=== PATIENT | male | born 1965 | race Caucasian/White ===

== ENCOUNTER → 2016-05-23 | Outpatient (CLI) | payer BC ==
--- NOTE | 2016-05-23 10:34 | REP ---
Cervical spine series: AP views. History: Posterior neck pain for months. Comparison study is reviewed from January 09, 2006. Findings: There is straightening of the normal cervical lordosis with limitation of flexion/extension range of motion on lateral flexion extension views. This is more pronounced than on the 2006 prior study. Vertebral body heights are preserved. There is mild disc space narrowing at C5-6 and C6-7 with early discogenic spurring at these two levels. Prevertebral soft tissues are unremarkable. Oblique radiographs demonstrate intact neural foramina bilaterally at each cervical level and normally aligned facets. AP view shows minimal facet hypertrophy bilaterally. Open-mouth odontoid view is unremarkable. Impression: Mild degenerative spondylosis changes, more pronounced than on the 2006 prior exam. Limitation of flexion/extension range of motion. No bony neural foraminal encroachment seen. Signed by Ronny Figueroa MD 05/23/2016 10:45 A
--- NOTE | 2016-05-23 13:33 | REP ---
LEFT SHOULDER: Three views of the left shoulder are performed. There is no acute fracture or dislocation. Small spurs are seen of the bony glenoid inferiorly. IMPRESSION: Mild degenerative changes with no fracture or dislocation. Signed by Brian Hendrickson MD 05/23/2016 05:01 P
== END ==
LOC: M WUC 08:31
PROVIDERS: ATTEND Physician Assistant
DX: M25.512 Pain in left shoulder (principal)

== ENCOUNTER → 2016-10-23 | Outpatient (CLI) | payer BC ==
[2016-10-23 09:43] LABS: ADD MANUAL DIFFER YES; MEAN CORPUSCULAR HEMOGLOBIN 29.7 pg (27.0-33.0); MEAN CORPUSCULAR HGB CONC 33.2 g/dl (32.0-36.5); MEAN CORPUSCULAR VOLUME 89.5 fl (80.0-96.0); PLATELET COUNT, AUTOMATED 177 k/mm3 (150-450); RED CELL DISTRIBUTION WIDTH 12.1 % (11.5-14.5); WHITE BLOOD COUNT 2.7 K/mm3 (4.0-10.0)
[2016-10-23 10:22] LABS: ALBUMIN/GLOBULIN RATIO 1.48 (1.00-1.93); ALKALINE PHOSPHATASE 54 U/L (45-117); ALT/SGPT 29 U/L (12-78); ANION GAP 7 MEQ/L (8-16); AST/SGOT 18 U/L (15-37); BILIRUBIN,TOTAL 0.4 MG/DL (0.2-1.0); BLOOD UREA NITROGEN 19 MG/DL (7-18); CALCIUM LEVEL 8.6 MG/DL (8.5-10.1); CARBON DIOXIDE LEVEL 29 MEQ/L (21-32); CHLORIDE LEVEL 108 MEQ/L (98-107); CHOLESTEROL LEVEL 158 MG/DL (<200); CREATININE FOR GFR 1.14 MG/DL (0.70-1.30); GLOMERULAR FILTRATION RATE > 60.0 (>56); GLUCOSE, FASTING 100 MG/DL (70-105); POTASSIUM SERUM 4.7 MEQ/L (3.5-5.1); SODIUM LEVEL 144 MEQ/L (136-145); TOTAL PROTEIN 6.7 GM/DL (6.4-8.2); TRIGLYCERIDES LEVEL 52 MG/DL (<150)
[2016-10-23 10:24] LABS: BASOPHILS 1 % (0-4); EOSINOPHILS 1 % (0-5)
== END ==
LOC: M WUC 08:13
PROVIDERS: ATTEND Physician Assistant Medical
DX: I10 Essential (primary) hypertension (principal); E78.2 Mixed hyperlipidemia

== ENCOUNTER → 2016-12-22 | Outpatient (CLI) | payer BC ==
--- NOTE | 2016-12-22 09:48 | REP ---
Chest x-ray: Two views. History: Hypertension . Comparison study: January 04, 2006 . Findings: The lungs are well inflated and free of infiltrate. The pleural angles are sharp. The heart size is normal. Pulmonary vasculature is not increased. No significant bony abnormality is seen. Impression: Negative chest x-ray. Signed by Ronny Figueroa MD 12/22/2016 09:41 A
== END ==
LOC: M WUC 08:50
PROVIDERS: ATTEND Internal Medicine Cardiovascular Disease
DX: I10 Essential (primary) hypertension (principal)

== ENCOUNTER → 2017-08-04 | Outpatient (CLI) | payer BC | LOC: M ADAMS 14:17 | DX: M25.512 Pain in left shoulder (principal) | CPT/HCPCS: 73030 ==

== ENCOUNTER → 2017-10-29 | Outpatient (CLI) | payer BC ==
[2017-10-29 09:19] LABS: BASO # 0.1 10^3/uL (0.0-0.2); BASO % 1.3 % (0.0-1.0); EOS # 0.3 10^3/uL (0.0-0.50); EOS % 6.9 % (0.0-3.0); HEMATOCRIT 43.4 % (42.0-52.0); IMMATURE GRANULOCYTE % 0.5 % (0-3.0); LYMPH # 1.1 10^3/uL (1.5-4.5); LYMPH % 28.2 % (24.0-44.0); MEAN CORPUSCULAR HEMOGLOBIN 28.5 pg (27.0-33.0); MEAN CORPUSCULAR HGB CONC 32.3 g/dl (32.0-36.5); MEAN CORPUSCULAR VOLUME 88.2 fl (80.0-96.0); MONO # 0.3 10^3/uL (0.0-0.8); MONO % 8.2 % (0.0-5.0); NEUTROPHILS # 2.1 10^3/uL (1.8-7.7); NEUTROPHILS % 54.9 % (36.0-66.0); PLATELET COUNT, AUTOMATED 190 10^3/uL (150-450); RED BLOOD COUNT 4.92 10^6/uL (4.30-6.10); RED CELL DISTRIBUTION WIDTH 12.1 % (11.5-14.5); WHITE BLOOD COUNT 3.8 10^3/uL (4.0-10.0)
[2017-10-29 09:46] LABS: TOTAL 25(OH) VITAMIN D 33.5 NG/ML (30.0-100.0)
[2017-10-29 10:13] LABS: ALBUMIN 4.1 GM/DL (3.2-5.2); ALBUMIN/GLOBULIN RATIO 1.32 (1.00-1.93); ALKALINE PHOSPHATASE 51 U/L (45-117); ALT/SGPT 25 U/L (12-78); ANION GAP 6 MEQ/L (8-16); AST/SGOT 19 U/L (7-37); BILIRUBIN,TOTAL 0.6 MG/DL (0.2-1.0); BLOOD UREA NITROGEN 22 MG/DL (7-18); CARBON DIOXIDE LEVEL 30 MEQ/L (21-32); CHLORIDE LEVEL 106 MEQ/L (98-107); CHOLESTEROL LEVEL 202 MG/DL (<200); CREATININE FOR GFR 1.25 MG/DL (0.70-1.30); GLOMERULAR FILTRATION RATE > 60.0 (>56); GLUCOSE, FASTING 93 MG/DL (70-100); HDL CHOLESTEROL 54 MG/DL (>40); LDL CHOLESTEROL 124.6 MG/DL (<100); NON-HDL-C 148 MG/DL; POTASSIUM SERUM 4.6 MEQ/L (3.5-5.1); SODIUM LEVEL 142 MEQ/L (136-145); THYROID STIMULATING HORMONE 0.768 uIU/ML (0.358-3.740); TOTAL PROTEIN 7.2 GM/DL (6.4-8.2); TRIGLYCERIDES LEVEL 117 MG/DL (<150)
== END ==
LOC: M WUC 08:04
DX: I10 Essential (primary) hypertension (principal); E78.2 Mixed hyperlipidemia
CPT/HCPCS: 84443

== ENCOUNTER → 2018-04-25 | Outpatient (CLI) | payer BC ==
--- NOTE | 2018-04-26 10:41 | REP ---
LUMBOSACRAL SPINE: Five views of lumbosacral spine are performed. There is no compression fracture. There is no malalignment. There is mild diffuse spurring and disc space narrowing. There is a more moderate degree of disc space narrowing at L4-5 and L5-S1 with sclerosis at the posterior facet joints at those levels. The posterior elements are intact. There is slight curvature toward the right. IMPRESSION: Diffuse degenerative changes without fracture or dislocation. Electronically Signed by Brian Hendrickson MD 04/26/2018 10:50 P
== END ==
LOC: M WUC 10:59
PROVIDERS: ATTEND Physician Assistant
DX: S39.012A Strain of muscle, fascia and tendon of lower back, initial encounter (principal); M51.37 Other intervertebral disc degeneration, lumbosacral region; X58.XXXA Exposure to other specified factors, initial encounter; Y92.9 Unspecified place or not applicable

== ENCOUNTER → 2018-09-27 | Outpatient (CLI) | payer BC ==
[2018-09-27 09:18] LABS: BASO # 0.1 10^3/uL (0.0-0.2); BASO % 1.5 % (0.0-1.0); EOS # 0.2 10^3/uL (0.0-0.50); EOS % 5.4 % (0.0-3.0); HEMATOCRIT 41.1 % (42.0-52.0); HEMOGLOBIN 13.2 g/dl (13.5-17.5); LYMPH % 30.5 % (24.0-44.0); MEAN CORPUSCULAR HEMOGLOBIN 28.7 pg (27.0-33.0); MEAN CORPUSCULAR HGB CONC 32.1 g/dl (32.0-36.5); MEAN CORPUSCULAR VOLUME 89.3 fl (80.0-96.0); MONO # 0.3 10^3/uL (0.0-0.8); MONO % 9.6 % (0.0-5.0); NEUTROPHILS # 1.8 10^3/uL (1.8-7.7); NEUTROPHILS % 52.7 % (36.0-66.0); PLATELET COUNT, AUTOMATED 160 10^3/uL (150-450); WHITE BLOOD COUNT 3.3 10^3/uL (4.0-10.0)
[2018-09-27 09:57] LABS: ALBUMIN 4.2 GM/DL (3.2-5.2); ALT/SGPT 29 U/L (12-78); BILIRUBIN,TOTAL 0.6 MG/DL (0.2-1.0); BLOOD UREA NITROGEN 20 MG/DL (7-18); CALCIUM LEVEL 8.8 MG/DL (8.5-10.1); CARBON DIOXIDE LEVEL 30 MEQ/L (21-32); CHLORIDE LEVEL 106 MEQ/L (98-107); CHOLESTEROL LEVEL 208 MG/DL (<200); CHOLESTEROL RISK RATIO 4.521 (<5); CREATININE FOR GFR 1.08 MG/DL (0.70-1.30); FREE T4 0.96 NG/DL (0.76-1.46); GLOMERULAR FILTRATION RATE > 60.0 (>56); GLUCOSE, FASTING 94 MG/DL (70-100); HDL CHOLESTEROL 46 MG/DL (>40); LDL CHOLESTEROL 141 MG/DL (<100); NON-HDL-C 162 MG/DL; POTASSIUM SERUM 4.4 MEQ/L (3.5-5.1); SODIUM LEVEL 139 MEQ/L (136-145); THYROID STIMULATING HORMONE 0.886 uIU/ML (0.358-3.740); TOTAL PROTEIN 6.8 GM/DL (6.4-8.2); TRIGLYCERIDES LEVEL 105 MG/DL (<150); URIC ACID 8.7 MG/DL (3.5-7.2)
[2018-09-28 14:07] LABS: PSA TOTAL 0.5 ng/mL (0.0-4.0)
== END ==
LOC: M WUC 08:15
PROVIDERS: ATTEND Physician Assistant
DX: I10 Essential (primary) hypertension (principal); M10.9 Gout, unspecified; Z12.5 Encounter for screening for malignant neoplasm of prostate

== ENCOUNTER → 2019-09-02 | Outpatient (CLI) | payer BC ==
--- NOTE | 2019-09-02 16:02 | REPPI ---
REASON: Abdominal pain. The accompanying frontal view of the chest has been compared to the latest prior chest examination of 12/22/2016. The frontal view of the chest is unchanged. There is no free subdiaphragmatic air. The intestinal gas pattern is nonspecific, however, multiple mildly dilated gas-filled small bowel loops int he abdomen without evidence of air fluid levels. There organ silhouettes are obscured. IMPRESSION: Small bowel ileus is suspected. Electronically Signed by Erick Monzon DO 09/02/2019 05:05 P
== END ==
LOC: M PLAIMG 14:16
PROVIDERS: ATTEND Physician Assistant
DX: K57.92 Diverticulitis of intestine, part unspecified, without perforation or abscess without bleeding (principal)

== ENCOUNTER → 2019-09-05 | Outpatient (CLI) | payer BC ==
[~2019-09-05] MED LIST: GASTROGRAFIN SOLUTION 30ML (Q9963) As Ordered ONE; ISOVUE-370 76% 100ML VIAL As Ordered ONE
--- NOTE | 2019-09-05 15:42 | REP ---
REASON: Diverticulitis. COMPARISON: 03/02/2014 Contrast 100 mL Isovue 370. The lung bases are clear and unchanged. The liver, gallbladder, spleen, pancreas, adrenal glands and kidneys are again seen to be within normal limits. There is no changes in the cyst in the lateral segment of the left lobe of the liver. The abdominal aorta and para-aortic regions are unchanged and again seen to be within normal limits. There is no free fluid or free air in the abdomen or pelvis. Seen arising from the mid sigmoid colon mesentery is mild fatty infiltration seen amidst multiple diverticula. There is no pelvic mass or adenopathy. There is no free fluid or free air. The osseous structures are stable and intact. IMPRESSION: There is mild sigmoid colon diverticulitis. Electronically Signed by Erick Monzon DO 09/05/2019 04:39 P
== END ==
LOC: M RAD 10:17
PROVIDERS: ATTEND Physician Assistant
DX: K57.32 Diverticulitis of large intestine without perforation or abscess without bleeding (principal)
CPT/HCPCS: 74177; Q9963; Q9967

== ENCOUNTER → 2020-02-15 | Outpatient (CLI) | payer BC ==
[2020-02-15 11:27] LABS: BILIRUBIN,DIRECT 0.1 MG/DL (0.0-0.2); BILIRUBIN,TOTAL 0.7 MG/DL (0.2-1.0); CHOLESTEROL RISK RATIO 4.933 (<5); TOTAL PROTEIN 6.8 GM/DL (6.4-8.2)
== END ==
LOC: M WUC 08:15
PROVIDERS: ATTEND Physician Assistant
DX: E78.2 Mixed hyperlipidemia (principal)

== ENCOUNTER → 2020-05-21 | Outpatient (CLI) | payer BC ==
[2020-05-21 10:34] LABS: ALBUMIN 4.2 GM/DL (3.2-5.2); ALT/SGPT 39 U/L (12-78); BILIRUBIN,TOTAL 0.7 MG/DL (0.2-1.0); BLOOD UREA NITROGEN 17 MG/DL (7-18); CALCIUM LEVEL 9.4 MG/DL (8.5-10.1); CARBON DIOXIDE LEVEL 29 MEQ/L (21-32); CHLORIDE LEVEL 107 MEQ/L (98-107); CHOLESTEROL LEVEL 139 MG/DL (<200); CHOLESTEROL RISK RATIO 3.021 (<5); CREATININE FOR GFR 1.04 MG/DL (0.70-1.30); GLOMERULAR FILTRATION RATE > 60.0 (>56); GLUCOSE, FASTING 94 MG/DL (70-100); HDL CHOLESTEROL 46 MG/DL (>40); LDL CHOLESTEROL 66 MG/DL (<100); NON-HDL-C 93 MG/DL; POTASSIUM SERUM 4.1 MEQ/L (3.5-5.1); SODIUM LEVEL 141 MEQ/L (136-145); TOTAL PROTEIN 6.8 GM/DL (6.4-8.2); TRIGLYCERIDES LEVEL 133 MG/DL (<150)
[2020-05-22 23:06] LABS: PSA TOTAL 0.5 ng/mL (0.0-4.0)
== END ==
LOC: M WUC 08:16
PROVIDERS: ATTEND Physician Assistant
DX: E78.2 Mixed hyperlipidemia (principal); Z12.5 Encounter for screening for malignant neoplasm of prostate

== ENCOUNTER → 2020-11-21 | Outpatient (CLI) | payer BC ==
[2020-11-21 09:56] LABS: BASO # 0.1 10^3/uL (0.0-0.2); BASO % 1.1 % (0.0-1.0); EOS # 0.2 10^3/uL (0.0-0.5); EOS % 5.1 % (0.0-3.0); HEMATOCRIT 42.7 % (42.0-52.0); HEMOGLOBIN 13.5 g/dl (13.5-17.5); LYMPH # 1.1 10^3/uL (1.5-5.0); LYMPH % 23.4 % (24.0-44.0); MEAN CORPUSCULAR HEMOGLOBIN 29.2 pg (27.0-33.0); MEAN CORPUSCULAR HGB CONC 31.6 g/dl (32.0-36.5); MEAN CORPUSCULAR VOLUME 92.2 fl (80.0-96.0); MONO # 0.4 10^3/uL (0.0-0.8); MONO % 9.4 % (2.0-8.0); NEUTROPHILS # 2.7 10^3/uL (1.5-8.5); NEUTROPHILS % 60.6 % (36.0-66.0); PLATELET COUNT, AUTOMATED 202 10^3/uL (150-450); RED BLOOD COUNT 4.63 10^6/uL (4.30-6.10); WHITE BLOOD COUNT 4.5 10^3/uL (4.0-10.0)
[2020-11-21 10:29] LABS: ALBUMIN 3.9 GM/DL (3.2-5.2); ALT/SGPT 30 U/L (12-78); BILIRUBIN,TOTAL 0.9 MG/DL (0.2-1.0); BLOOD UREA NITROGEN 15 MG/DL (7-18); CALCIUM LEVEL 9.3 MG/DL (8.5-10.1); CARBON DIOXIDE LEVEL 32 MEQ/L (21-32); CHLORIDE LEVEL 105 MEQ/L (98-107); CHOLESTEROL LEVEL 143 MG/DL (<200); CHOLESTEROL RISK RATIO 3.042 (<5); CREATININE FOR GFR 0.96 MG/DL (0.70-1.30); FREE T4 0.98 NG/DL (0.76-1.46); GLOMERULAR FILTRATION RATE > 60.0 (>56); GLUCOSE, FASTING 93 MG/DL (70-100); HDL CHOLESTEROL 47 MG/DL (>40); LDL CHOLESTEROL 80 MG/DL (<100); NON-HDL-C 96 MG/DL; POTASSIUM SERUM 4.3 MEQ/L (3.5-5.1); SODIUM LEVEL 139 MEQ/L (136-145); TOTAL PROTEIN 6.6 GM/DL (6.4-8.2); TRIGLYCERIDES LEVEL 82 MG/DL (<150); URIC ACID 4.2 MG/DL (3.5-7.2)
== END ==
LOC: M WUC 08:06
PROVIDERS: ATTEND Physician Assistant
DX: Z00.00 Encounter for general adult medical examination without abnormal findings (principal); I10 Essential (primary) hypertension; E78.2 Mixed hyperlipidemia; M10.9 Gout, unspecified; Z13.0 Encounter for screening for diseases of the blood and blood-forming organs and certain disorders involving the immune mechanism

== ENCOUNTER → 2020-11-25 | Outpatient (CLI) | payer BC ==
--- NOTE | 2020-11-25 12:47 | REP ---
INDICATION: LT SHOULDER PAIN. COMPARISON: Radiographs 08/04/2017. TECHNIQUE: Coronal oblique T1, T2 fat sat, sagittal oblique T2 fat sat, axial T2 fat sat, gradient echo. FINDINGS: Rotator cuff: There is moderate tendinopathy/tendinitis of the supraspinatus tendon. There is a partial full-thickness tear of the anterior leading edge of the distal supraspinatus. There is a partial tear of the subscapularis. Acromioclavicular joint: There are moderate hypertrophic degenerative changes of the acromioclavicular joint. There is mild subacromial spurring. Acromion: Type 2 Biceps Tendon: In bicipital groove, there is mild surrounding fluid. Hill Sach's deformity: None. Deltoid muscle: No abnormal signal. Biceps labral complex: There is fraying of the biceps labral complex. Labrum: There is fraying of the superior labrum. There is a tear of the posterior labrum. Cartilage: There is mild chondromalacia at the glenohumeral joint. Bone marrow: There is minimal subcortical marrow edema in the superolateral humeral head. Joint fluid: There is a small joint effusion, with a small amount of fluid in the subacromial/subdeltoid bursae. IMPRESSION: Moderate supraspinatus tendinopathy/tendinitis. Partial full-thickness tear at the anterior leading edge of this tendon. There is a partial tear of the subscapularis tendon. There are moderate hypertrophic degenerative changes of the acromioclavicular joint. There is fraying of the biceps labral complex and superior labrum. There is a tear of the posterior labrum. Small joint effusion with a small amount of fluid in the subacromial/subdeltoid bursae. <Electronically signed by Brian Hendrickson > 11/25/20 [id number]
== END ==
LOC: M RAD 09:56
PROVIDERS: ATTEND Physician Assistant
DX: M25.512 Pain in left shoulder (principal)

== ENCOUNTER → 2021-01-02 | Outpatient (CLI) | payer BC ==
[2021-01-02 13:36] LABS: BASO # 0.1 10^3/uL (0.0-0.2); BASO % 1.2 % (0.0-1.0); EOS # 0.2 10^3/uL (0.0-0.5); EOS % 3.6 % (0.0-3.0); HEMATOCRIT 43.9 % (42.0-52.0); HEMOGLOBIN 13.7 g/dl (13.5-17.5); LYMPH # 1.1 10^3/uL (1.5-5.0); LYMPH % 25.8 % (24.0-44.0); MEAN CORPUSCULAR HGB CONC 31.2 g/dl (32.0-36.5); MONO # 0.4 10^3/uL (0.0-0.8); MONO % 8.6 % (2.0-8.0); NEUTROPHILS # 2.5 10^3/uL (1.5-8.5); NEUTROPHILS % 60.6 % (36.0-66.0); PLATELET COUNT, AUTOMATED 210 10^3/uL (150-450); RED BLOOD COUNT 4.72 10^6/uL (4.30-6.10); WHITE BLOOD COUNT 4.2 10^3/uL (4.0-10.0)
[2021-01-02 13:38] LABS: APPEARANCE, URINE CLEAR (CLEAR); BACTERIA, URINE AUTO NEGATIVE (NEGATIVE); BILIRUBIN, URINE AUTO NEGATIVE (NEGATIVE); BLOOD, URINE BLOOD NEGATIVE (NEGATIVE); COLOR, URINE STRAW (YELLOW); GLUCOSE, URINE (UA) AUTO NEGATIVE (NEGATIVE); KETONE, URINE AUTO NEGATIVE (NEGATIVE); LEUKOCYTE ESTERASE, URINE AUTO NEGATIVE (NEGATIVE); NITRITE, URINE AUTO NEGATIVE (NEGATIVE); PROTEIN, URINE AUTO NEGATIVE (NEGATIVE); RBC, URINE AUTO 1 /HPF (0-3); SPECIFIC GRAVITY URINE AUTO 1.003 (1.002-1.035); SQUAMOUS EPITHELIAL CELL UR AU 0 /HPF (0-6); UROBILINOGEN, URINE AUTO 0.2 mg/dL (0.0-2.0); WBC, URINE AUTO 0 /HPF (0-3)
[2021-01-02 14:05] LABS: BLOOD UREA NITROGEN 16 MG/DL (7-18); CALCIUM LEVEL 9.6 MG/DL (8.5-10.1); CARBON DIOXIDE LEVEL 33 MEQ/L (21-32); CHLORIDE LEVEL 106 MEQ/L (98-107); GLOMERULAR FILTRATION RATE > 60.0 (>56); GLUCOSE, FASTING 100 MG/DL (70-100); POTASSIUM SERUM 4.4 MEQ/L (3.5-5.1); SODIUM LEVEL 141 MEQ/L (136-145)
[2021-01-02 14:06] LABS: ALBUMIN 4.4 GM/DL (3.2-5.2); ALT/SGPT 34 U/L (12-78); BILIRUBIN,TOTAL 0.9 MG/DL (0.2-1.0)
== END ==
LOC: M WUC 08:59
PROVIDERS: ATTEND Nurse Practitioner Family
DX: M75.102 Unspecified rotator cuff tear or rupture of left shoulder, not specified as traumatic (principal)

== ENCOUNTER → 2021-06-03 | Outpatient (CLI) | payer BC ==
[2021-06-03 16:03] LABS: BASO % 0.3 % (0.0-1.0); EOS # 0.1 10^3/uL (0.0-0.5); EOS % 1.3 % (0.0-3.0); HEMATOCRIT 44.5 % (42.0-52.0); HEMOGLOBIN 14.3 g/dl (13.5-17.5); LYMPH # 1.1 10^3/uL (1.5-5.0); MEAN CORPUSCULAR HEMOGLOBIN 29.1 pg (27.0-33.0); MEAN CORPUSCULAR HGB CONC 32.1 g/dl (32.0-36.5); MEAN CORPUSCULAR VOLUME 90.4 fl (80.0-96.0); MONO # 0.9 10^3/uL (0.0-0.8); MONO % 9.6 % (2.0-8.0); NEUTROPHILS # 6.9 10^3/uL (1.5-8.5); NEUTROPHILS % 76.6 % (36.0-66.0); PLATELET COUNT, AUTOMATED 193 10^3/uL (150-450); RED BLOOD COUNT 4.92 10^6/uL (4.30-6.10)
[2021-06-03 16:22] LABS: ALBUMIN 4.4 GM/DL (3.2-5.2); ALT/SGPT 35 U/L (12-78); BILIRUBIN,DIRECT 0.2 MG/DL (0.0-0.2); BILIRUBIN,TOTAL 0.8 MG/DL (0.2-1.0); BLOOD UREA NITROGEN 18 MG/DL (7-18); C REACTIVE PROTEIN QUANTITATIV 4.16 MG/DL (0.00-0.30); CALCIUM LEVEL 9.6 MG/DL (8.5-10.1); CARBON DIOXIDE LEVEL 34 MEQ/L (21-32); CHLORIDE LEVEL 104 MEQ/L (98-107); CREATININE FOR GFR 0.98 MG/DL (0.70-1.30); GLOMERULAR FILTRATION RATE > 60.0 (>56); GLUCOSE, FASTING 94 MG/DL (70-100); LIPASE 123 U/L (73-393); POTASSIUM SERUM 3.8 MEQ/L (3.5-5.1); SODIUM LEVEL 140 MEQ/L (136-145); TOTAL PROTEIN 7.5 GM/DL (6.4-8.2)
== END ==
LOC: M RAD 15:21
PROVIDERS: ATTEND Physician Assistant
DX: K57.30 Diverticulosis of large intestine without perforation or abscess without bleeding (principal)

== ENCOUNTER 2021-10-06 19:24 | Emergency (ER) | payer BC ==
[~2021-10-06] VITALS: Ht 182.9 cm; Wt 83.3 kg
[2021-10-06] MEDS ORDERED: ALLO300T2 PO (19:37)
[2021-10-06] MEDS ORDERED: ASPI81TA26 PO (19:37)
[2021-10-06] MEDS ORDERED: ROSU5TAB5 PO (19:37)
[2021-10-06] MEDS ORDERED: TIMO0.5S29 OU (19:37)
[2021-10-06] MEDS ORDERED: LISI10TA22 PO (19:37)
[2021-10-06] MEDS ORDERED: methylPREDNISolone 125MG 2ML VIAL IM ONE (20:10)
[2021-10-06 20:59] VITALS: BP 137/83
[2021-10-06] MEDS ORDERED: PRED20TA PO (20:59)
== END 2021-10-06 21:13 | disposition home or self-care (01) ==
LOC: M ED 19:24
DX: T63.441A Toxic effect of venom of bees, accidental (unintentional), initial encounter (principal); R21 Rash and other nonspecific skin eruption; I10 Essential (primary) hypertension; E78.5 Hyperlipidemia, unspecified; Z79.811 Long term (current) use of aromatase inhibitors; Z79.899 Other long term (current) drug therapy
CPT/HCPCS: 96372; 99283; J2930

== ENCOUNTER → 2021-11-22 | Outpatient (CLI) | payer BC ==
[~2021-11-22] MED LIST changes: +ALLO300T2 PO; +ASPI81TA26 PO; -GASTROGRAFIN SOLUTION 30ML (Q9963) As Ordered ONE; -ISOVUE-370 76% 100ML VIAL As Ordered ONE; +LISI10TA22 PO; +PRED20TA PO; +ROSU5TAB5 PO; +TIMO0.5S29 OU
[2021-11-22 13:37] LABS: BASO % 0.9 % (0.0-1.0); EOS # 0.1 10^3/uL (0.0-0.5); HEMATOCRIT 43.8 % (42.0-52.0); HEMOGLOBIN 13.6 g/dl (13.5-17.5); LYMPH # 1.2 10^3/uL (1.5-5.0); LYMPH % 27.4 % (24.0-44.0); MEAN CORPUSCULAR HEMOGLOBIN 28.9 pg (27.0-33.0); MEAN CORPUSCULAR HGB CONC 31.1 g/dl (32.0-36.5); MEAN CORPUSCULAR VOLUME 93.2 fl (80.0-96.0); MONO # 0.4 10^3/uL (0.0-0.8); MONO % 9.2 % (2.0-8.0); NEUTROPHILS # 2.6 10^3/uL (1.5-8.5); NEUTROPHILS % 59.3 % (36.0-66.0); PLATELET COUNT, AUTOMATED 162 10^3/uL (150-450); WHITE BLOOD COUNT 4.4 10^3/uL (4.0-10.0)
[2021-11-22 14:21] LABS: ALBUMIN 4.1 GM/DL (3.2-5.2); ALT/SGPT 35 U/L (12-78); BILIRUBIN,TOTAL 0.8 MG/DL (0.2-1.0); BLOOD UREA NITROGEN 15 MG/DL (7-18); CALCIUM LEVEL 9.2 MG/DL (8.5-10.1); CARBON DIOXIDE LEVEL 30 MEQ/L (21-32); CHLORIDE LEVEL 104 MEQ/L (98-107); CHOLESTEROL LEVEL 168 MG/DL (<200); CHOLESTEROL RISK RATIO 3.054 (<5); CREATININE FOR GFR 0.98 MG/DL (0.70-1.30); GLOMERULAR FILTRATION RATE > 60.0 (>56); GLUCOSE, FASTING 85 MG/DL (70-100); HDL CHOLESTEROL 55 MG/DL (>40); LDL CHOLESTEROL 97 MG/DL (<100); NON-HDL-C 113 MG/DL; POTASSIUM SERUM 4.1 MEQ/L (3.5-5.1); SODIUM LEVEL 138 MEQ/L (136-145); TOTAL PROTEIN 6.7 GM/DL (6.4-8.2); TRIGLYCERIDES LEVEL 80 MG/DL (<150); URIC ACID 4.4 MG/DL (3.5-7.2)
== END ==
LOC: M WUC 08:41
PROVIDERS: ATTEND Physician Assistant
DX: E78.2 Mixed hyperlipidemia (principal)
CPT/HCPCS: 36415; 80053; 80061; 84550; 85025; G0103

== ENCOUNTER → 2022-12-29 | Outpatient (CLI) | payer BC ==
[~2022-12-29] MED LIST changes: +TIMO0.5S20 OU; -TIMO0.5S29 OU
[2022-12-29 09:53] LABS: BASO # 0.1 10^3/uL (0.0-0.2); BASO % 1.3 % (0.0-1.0); EOS # 0.2 10^3/uL (0.0-0.5); EOS % 4.5 % (0.0-3.0); LYMPH # 1.3 10^3/uL (1.5-5.0); LYMPH % 27.4 % (24.0-44.0); MEAN CORPUSCULAR HEMOGLOBIN 29.5 pg (27.0-33.0); MEAN CORPUSCULAR HGB CONC 31.8 g/dl (32.0-36.5); MEAN CORPUSCULAR VOLUME 92.8 fl (80.0-96.0); MONO # 0.4 10^3/uL (0.0-0.8); MONO % 8.2 % (2.0-8.0); NEUTROPHILS # 2.7 10^3/uL (1.5-8.5); NEUTROPHILS % 58.2 % (36.0-66.0); PLATELET COUNT, AUTOMATED 178 10^3/uL (150-450); RED BLOOD COUNT 4.74 10^6/uL (4.30-6.10); WHITE BLOOD COUNT 4.6 10^3/uL (4.0-10.0)
[2022-12-29 10:17] LABS: URIC ACID 4.5 MG/DL (3.7-9.2)
[2022-12-29 10:41] LABS: ALBUMIN 4.3 G/DL (3.2-5.2); ALKALINE PHOSPHATASE 63 U/L (46-116); ALT/SGPT 27 U/L (7.0-40); AST/SGOT 27 U/L (<34); BILIRUBIN,TOTAL 0.8 MG/DL (0.3-1.2); BLOOD UREA NITROGEN 19 MG/DL (9-23); CALCIUM LEVEL 9.1 MG/DL (8.5-10.1); CARBON DIOXIDE LEVEL 32 MMOL/L (20-31); CHLORIDE LEVEL 103 MMOL/L (98-107); CHOLESTEROL LEVEL 149 MG/DL (<200); CHOLESTEROL RISK RATIO 2.82 (<5); CREATININE FOR GFR 0.97 MG/DL (0.70-1.30); FREE T4 1.05 NG/DL (0.89-1.76); GLOMERULAR FILTRATION RATE > 60.0 (>56); GLUCOSE, FASTING 102 MG/DL (60-100); HDL CHOLESTEROL 52.8 MG/DL (>40); LDL CHOLESTEROL 69.4 MG/DL (<100); NON-HDL-C 96.2 MG/DL; POTASSIUM SERUM 4.3 MMOL/L (3.5-5.1); SODIUM LEVEL 139 MMOL/L (136-145); THYROID STIMULATING HORMONE 1.416 uIU/ML (0.55-4.78); TOTAL PROTEIN 6.9 G/DL (5.7-8.2); TRIGLYCERIDES LEVEL 134 MG/DL (<150)
== END ==
LOC: M WUC 08:21
PROVIDERS: ATTEND Physician Assistant
DX: I10 Essential (primary) hypertension (principal); E78.2 Mixed hyperlipidemia; M10.9 Gout, unspecified; Z79.899 Other long term (current) drug therapy
CPT/HCPCS: 36415; 80053; 80061; 84439; 84443; 84550; 85025; G0103

== ENCOUNTER → 2023-04-28 | Outpatient (REF) | payer BC | LOC: M LAB REF 17:13 | PROVIDERS: ATTEND Physician Assistant | DX: J06.9 Acute upper respiratory infection, unspecified (principal) ==

== ENCOUNTER → 2023-05-11 | Outpatient (CLI) | payer BC ==
[2023-05-11 10:32] LABS: BLOOD UREA NITROGEN 26 MG/DL (9-23); CALCIUM LEVEL 9.6 MG/DL (8.5-10.1); CARBON DIOXIDE LEVEL 34 MMOL/L (20-31); CHLORIDE LEVEL 102 MMOL/L (98-107); CREATININE FOR GFR 1.02 MG/DL (0.70-1.30); GLOMERULAR FILTRATION RATE > 60.0 (>56); GLUCOSE, FASTING 78 MG/DL (60-100); POTASSIUM SERUM 4.6 MMOL/L (3.5-5.1); SODIUM LEVEL 138 MMOL/L (136-145)
== END ==
LOC: M WUC 08:20
PROVIDERS: ATTEND Physician Assistant
DX: I10 Essential (primary) hypertension (principal)

== ENCOUNTER 2023-09-23 09:49 | Day surgery (SDC) | payer OTHER ==
[~2023-09-23] VITALS: Ht 182.9 cm; Wt 77.5 kg
[~2023-09-23 09:49] MED LIST changes: +CHLO125TA PO; +LISI30TA4 PO; +POTA-136 PO; +ROSU5TAB40 PO; -ROSU5TAB5 PO; +THERTAB52 PO
[2023-09-23] MEDS ORDERED: LIDOCAINE 2% 100MG/5ML SDV (FOR ANES.) As Ordered ONE (10:26)
[2023-09-23] MEDS ORDERED: propofoL 200 MG/20 ML VIAL As Ordered ONE (10:26)
[2023-09-23] MEDS: NS 1,000 ML IV ONE (10:29)
[2023-09-23 11:47] VITALS: TEMP 97.8
[2023-09-23 12:04] VITALS: BP 125/73; O2SAT 98
== END 2023-09-23 12:14 | disposition home or self-care (01) ==
LOC: M OPP 09:49
PROVIDERS: ATTEND Surgery
DX: Z12.11 Encounter for screening for malignant neoplasm of colon (principal); I35.9 Nonrheumatic aortic valve disorder, unspecified; Z87.891 Personal history of nicotine dependence; Z79.02 Long term (current) use of antithrombotics/antiplatelets; Z79.82 Long term (current) use of aspirin; Z79.899 Other long term (current) drug therapy

== ENCOUNTER → 2024-03-01 | Outpatient (CLI) | payer OTHER ==
[~2024-03-01] MED LIST changes: -ROSU5TAB40 PO; +ROSU5TAB49 PO
[2024-03-01 10:36] LABS: BASO # 0.1 10^3/uL (0.0-0.2); BASO % 1.3 % (0.0-1.0); EOS # 0.2 10^3/uL (0.0-0.5); EOS % 5.7 % (0.0-3.0); HEMATOCRIT 41.4 % (42.0-52.0); LYMPH # 1.1 10^3/uL (1.5-5.0); LYMPH % 28.7 % (24.0-44.0); MEAN CORPUSCULAR HEMOGLOBIN 28.7 pg (27.0-33.0); MEAN CORPUSCULAR HGB CONC 31.4 g/dl (32.0-36.5); MEAN CORPUSCULAR VOLUME 91.4 fl (80.0-96.0); MONO # 0.4 10^3/uL (0.0-0.8); MONO % 9.9 % (2.0-8.0); NEUTROPHILS # 2.1 10^3/uL (1.5-8.5); NEUTROPHILS % 54.4 % (36.0-66.0); PLATELET COUNT, AUTOMATED 177 10^3/uL (150-450); RED BLOOD COUNT 4.53 10^6/uL (4.30-6.10); WHITE BLOOD COUNT 3.8 10^3/uL (4.0-10.0)
[2024-03-01 10:43] LABS: ALBUMIN 3.8 G/DL (3.2-5.2); ALKALINE PHOSPHATASE 57 U/L (40-129); ALT/SGPT 20 U/L (7.0-40); AST/SGOT 19 U/L (<34); BILIRUBIN,TOTAL 0.7 MG/DL (0.3-1.2); BLOOD UREA NITROGEN 22 MG/DL (9-23); CALCIUM LEVEL 9.6 MG/DL (8.3-10.6); CARBON DIOXIDE LEVEL 32 MMOL/L (20-31); CHLORIDE LEVEL 103 MMOL/L (98-107); CHOLESTEROL LEVEL 177 MG/DL (<200); CHOLESTEROL RISK RATIO 3.61 (<5); CREATININE FOR GFR 0.99 MG/DL (0.70-1.30); GLOMERULAR FILTRATION RATE > 60.0 (>49); GLUCOSE, FASTING 102 MG/DL (74-106); HDL CHOLESTEROL 48.9 MG/DL (>40); LDL CHOLESTEROL 103.9 MG/DL (<100); NON-HDL-C 128.1 MG/DL; POTASSIUM SERUM 4.2 MMOL/L (3.5-5.1); PSA SCREENING 0.84 NG/ML (< 4.00); SODIUM LEVEL 140 MMOL/L (136-145); TOTAL PROTEIN 6.9 G/DL (5.7-8.2); TRIGLYCERIDES LEVEL 121 MG/DL (<150)
[2024-03-01 10:47] LABS: FREE T4 1.24 NG/DL (0.89-1.76); THYROID STIMULATING HORMONE 1.046 uIU/ML (0.55-4.78)
[2024-03-01 10:50] LABS: URIC ACID 4.4 MG/DL (3.7-9.2)
[2024-03-01 11:13] LABS: HEMOGLOBIN A1c 5.1 % (4.0-6.0)
== END ==
LOC: M WUC 08:07
PROVIDERS: ATTEND Physician Assistant
DX: Z12.5 Encounter for screening for malignant neoplasm of prostate (principal); M10.9 Gout, unspecified; E78.2 Mixed hyperlipidemia; I10 Essential (primary) hypertension

== ENCOUNTER → 2024-06-13 | Outpatient (CLI) | payer OTHER | LOC: M WUC 08:21 | PROVIDERS: ATTEND Physician Assistant | DX: M25.561 Pain in right knee (principal); M17.11 Unilateral primary osteoarthritis, right knee ==

== ENCOUNTER → 2024-07-19 | Outpatient (CLI) | payer OTHER | LOC: M PLAIMG 09:22 | PROVIDERS: ATTEND Physician Assistant | DX: I71.20 Thoracic aortic aneurysm, without rupture, unspecified (principal); I35.1 Nonrheumatic aortic (valve) insufficiency ==

== ENCOUNTER → 2024-10-24 | Outpatient (CLI) | payer OTHER ==
[2024-10-24 15:06] LABS: BASO # 0.1 10^3/uL (0.0-0.2); BASO % 0.9 % (0.0-1.0); EOS # 0.1 10^3/uL (0.0-0.5); EOS % 1.4 % (0.0-3.0); LYMPH # 0.9 10^3/uL (1.5-5.0); LYMPH % 12.0 % (24.0-44.0); MONO # 0.5 10^3/uL (0.0-0.8); MONO % 6.3 % (2.0-8.0); NEUTROPHILS # 6.1 10^3/uL (1.5-8.5); NEUTROPHILS % 79.1 % (36.0-66.0); PLATELET COUNT, AUTOMATED 205 10^3/uL (150-450)
[2024-10-24 15:13] LABS: ALT/SGPT 21 U/L (7.0-40); AST/SGOT 27 U/L (<34); CALCIUM LEVEL 9.9 MG/DL (8.3-10.6); CARBON DIOXIDE LEVEL 28 MMOL/L (20-31); CHLORIDE LEVEL 105 MMOL/L (98-107); CREATININE FOR GFR 0.97 MG/DL (0.70-1.30); GLOMERULAR FILTRATION RATE 88.8 (>49); POTASSIUM SERUM 4.5 MMOL/L (3.5-5.1); SODIUM LEVEL 143 MMOL/L (136-145)
[2024-10-24 15:15] LABS: FREE T4 1.29 NG/DL (0.89-1.76)
[2024-10-24 15:16] LABS: ERYTHROCYTE SEDIMENTATION RATE 5 mm/hr (0-20)
[2024-10-24 15:35] LABS: C REACTIVE PROTEIN QUANTITATIV < 0.50 MG/DL (<1.0)
[2024-10-24 15:46] LABS: MONO REFLEX EBV COMP NEGATIVE (NEGATIVE)
[2024-10-26 12:26] LABS: EBV AB TO NUCLEAR ANTIGEN > 600.00 U/mL (<18.00); EBV VIRAL CAPSID AG IGG > 750.00 U/mL (<18.00); EBV VIRAL CAPSID AG IGM < 36.00 U/mL (<36.00)
== END ==
LOC: M WUC 11:59
PROVIDERS: ATTEND Physician Assistant
DX: R22.1 Localized swelling, mass and lump, neck (principal)

== ENCOUNTER → 2024-10-27 | Outpatient (CLI) | payer OTHER ==
[~2024-10-27] MED LIST changes: +ISOVUE-370 76% 100 ML VIAL As Ordered ONE
== END ==
LOC: M RAD 14:20
PROVIDERS: ATTEND Physician Assistant
DX: R22.1 Localized swelling, mass and lump, neck (principal)
CPT/HCPCS: 70491; Q9967

== ENCOUNTER → 2024-12-15 | Outpatient (CLI) | payer OTHER ==
[~2024-12-15] MED LIST changes: -ISOVUE-370 76% 100 ML VIAL As Ordered ONE
[2024-12-15 12:46] LABS: CALCIUM LEVEL 9.4 MG/DL (8.3-10.6); CARBON DIOXIDE LEVEL 32.0 MMOL/L (20-31); CHLORIDE LEVEL 103.0 MMOL/L (98-107); CREATININE FOR GFR 1.09 MG/DL (0.70-1.30); GLOMERULAR FILTRATION RATE 77.2 (>49); POTASSIUM SERUM 4.4 MMOL/L (3.5-5.1); SODIUM LEVEL 136.0 MMOL/L (136-145)
== END ==
LOC: M WUC 08:18
PROVIDERS: ATTEND Physician Assistant
DX: I10 Essential (primary) hypertension (principal)